=== PATIENT | female | born 1955 | race Caucasian/White ===

== ENCOUNTER 2020-01-22 16:34 | Inpatient (IN) ==
[2020-01-22 17:38] LABS: ABS Basophils 0.1 10^3/ul (0-0.2); ABS Lymphocytes 1.9 10^3/ul (1.0-4.8); ABS Monocytes 0.8 10^3/ul (0-0.8); ABS Neutrophils 10.1 10^3/ul (1.5-7.7); Eosinophil % 0.2 %; Hematocrit 40 % (35-47); Hemoglobin 13.8 g/dL (12.0-16.0); Lymphocyte % 14.6 %; Mean Corpuscular HGB Conc 35 g/dL (31-36); Mean Corpuscular Hemoglobin 31 pg (27-31); Mean Corpuscular Volume 89 fL (80-97); Mean Platelet Volume 7.1 fL (7.4-10.4); Platelet Count 243 10^3/uL (150-450); Red Blood Count 4.48 10^6 /uL (3.70-4.87); Red Cell Distribution Width 13 % (10-15); White Blood Count 12.8 10^3/uL (3.5-10.8)
[2020-01-22 17:44] LABS: INR 1.08 (0.82-1.09)
[2020-01-22 17:55] LABS: Albumin 4.2 g/dL (3.2-5.2); Albumin/Globulin Ratio 1.8 (1-3); BUN/Creatinine Ratio 17.6 (8-20); Calcium 9.5 mg/dL (8.6-10.3); EGFR African American 95.6 (>60); Globulin 2.3 g/dL (2-4); Total Bilirubin 1.1 mg/dL (0.2-1.0); Total Protein 6.5 g/dL (6.4-8.9)
[2020-01-22] MEDS ORDERED: Ondansetron 4 mg VIAL 2 MG/ML 2 ml VIAL IV PRN (18:41)
[2020-01-22] MEDS ORDERED: diPHENhydraMINE IV 50 MG/ML 1 ml VIAL (BENADRYL) IV PRN (18:41)
[2020-01-22] MEDS ORDERED: Morphine 4 MG/ML VIAL (1 ml) IV ONE (18:46)
[2020-01-22] MEDS ORDERED: Ondansetron 4 mg VIAL 2 MG/ML 2 ml VIAL IV ONE (18:46)
[2020-01-22] MEDS: Morphine 10 MG/ML VIAL (1 ml) IV PRN (21:41)
[2020-01-22] MEDS ORDERED: Heparin 5000 UNITS/ML 1 mL VIAL SUBCUT SCH (22:00)
[2020-01-22 22:48] LABS: ABS Basophils 0.1 10^3/ul (0-0.2); ABS Lymphocytes 2.6 10^3/ul (1.0-4.8); ABS Monocytes 1.1 10^3/ul (0-0.8); ABS Neutrophils 7.4 10^3/ul (1.5-7.7); Eosinophil % 0.4 %; Hematocrit 36 % (35-47); Hemoglobin 12.8 g/dL (12.0-16.0); Lymphocyte % 22.8 %; Mean Corpuscular HGB Conc 36 g/dL (31-36); Mean Corpuscular Hemoglobin 32 pg (27-31); Mean Corpuscular Volume 89 fL (80-97); Mean Platelet Volume 7.2 fL (7.4-10.4); Platelet Count 215 10^3/uL (150-450); Red Blood Count 4.04 10^6 /uL (3.70-4.87); Red Cell Distribution Width 13 % (10-15); White Blood Count 11.2 10^3/uL (3.5-10.8)
[2020-01-22 22:53] LABS: INR 1.12 (0.82-1.09)
[2020-01-22 23:03] LABS: BUN/Creatinine Ratio 17.9 (8-20); Calcium 9.1 mg/dL (8.6-10.3); EGFR Non-African American 74.4 (>60); Potassium 3.9 mmol/L (3.5-5.0)
[2020-01-22] MEDS: Lactated Ringers 1000 ml BAG 1,000 ML IV SCH (23:19)
[2020-01-22] MEDS: oxyCODONE/Acetamin 5/325 mg TAB PO PRN (23:26)
[2020-01-23] MEDS: Morphine 10 MG/ML VIAL (1 ml) IV PRN ×2 (02:58→07:13)
[2020-01-23] MEDS ORDERED: Propofol 10 MG/ML 20 ML BTL ONE (07:52)
[2020-01-23] MEDS ORDERED: Dexmedetomidine 200 mcg/2 ml 2 ml VIAL (200 mcg) ONE (07:52)
[2020-01-23] MEDS ORDERED: Lidocaine 2% PF 5 ML VIAL ONE (07:53)
[2020-01-23] MEDS ORDERED: Morphine PF AMP (0.5MG/ML) 5 MG/10 ML AMP ONE (08:01)
[2020-01-23] MEDS ORDERED: ceFAZolin 2 GM PREMIX 2 GM/50 ML BAG ONE (08:24)
[2020-01-23] MEDS ORDERED: ceFAZolin VIAL 2 GM in NS 0.9% 100 ml BAG 100 ML IVPB ONE (08:30)
[2020-01-23] MEDS ORDERED: Propofol 10 mg/ml 100 ML BTL 100 ML ONE (09:39)
[2020-01-23] MEDS ORDERED: Ondansetron 4 mg VIAL 2 MG/ML 2 ml VIAL IV PRN (10:37)
[2020-01-23] MEDS ORDERED: Naloxone 0.4 mg VIAL 0.4 mg/ml 1 ml VIAL IV PRN ×2 (10:37)
[2020-01-23] MEDS ORDERED: Ondansetron 4 mg VIAL 2 MG/ML 2 ml VIAL ONE (11:42)
[2020-01-23] MEDS: ceFAZolin 500 MG VIAL 500 MG in NS 0.9% 50 ML 50 ML IVPB SCH (17:04)
[2020-01-24] MEDS: oxyCODONE/Acetamin 5/325 mg TAB PO PRN ×5 (01:07→22:36)
[2020-01-24] MEDS: ceFAZolin 500 MG VIAL 500 MG in NS 0.9% 50 ML 50 ML IVPB SCH ×2 (01:07→09:21)
[2020-01-24] MEDS: diPHENhydraMINE 25 mg TAB PO PRN ×2 (01:36→09:25)
[2020-01-24] MEDS: Lactated Ringers 1000 ml BAG 1,000 ML IV SCH (02:36)
[2020-01-24] MEDS ORDERED: oxyCODONE/Acetamin 5/325 mg TAB PO PRN (09:23)
[2020-01-24] MEDS ORDERED: Lactulose 30 ml UDC PO PRN (11:46)
[2020-01-24] MEDS ORDERED: Magnesium Hydroxide LIQ 30 ML UDC PO PRN (11:47)
[2020-01-25] MEDS: oxyCODONE/Acetamin 5/325 mg TAB PO PRN ×3 (04:29→23:41)
[2020-01-26] MEDS: oxyCODONE/Acetamin 5/325 mg TAB PO PRN ×3 (07:58→21:06)
[2020-01-26] MEDS: Analgesic BALM 114 GM TOPICAL PRN (21:04)
[2020-01-27] MEDS: oxyCODONE/Acetamin 5/325 mg TAB PO PRN ×3 (02:56→18:53)
[2020-01-27] MEDS: Analgesic BALM 114 GM TOPICAL PRN ×2 (05:52→17:32)
[2020-01-28] MEDS: oxyCODONE/Acetamin 5/325 mg TAB PO PRN ×3 (01:31→13:27)
[2020-01-28 08:53] LABS: ABS Basophils 0.1 10^3/ul (0-0.2); ABS Eosinophils 0.1 10^3/ul (0-0.6); ABS Lymphocytes 1.7 10^3/ul (1.0-4.8); ABS Monocytes 0.8 10^3/ul (0-0.8); ABS Neutrophils 5.3 10^3/ul (1.5-7.7); Eosinophil % 1.4 %; Hematocrit 34 % (35-47); Lymphocyte % 21.3 %; Mean Corpuscular HGB Conc 35 g/dL (31-36); Mean Corpuscular Hemoglobin 32 pg (27-31); Mean Corpuscular Volume 89 fL (80-97); Mean Platelet Volume 6.6 fL (7.4-10.4); Platelet Count 319 10^3/uL (150-450); Red Blood Count 3.81 10^6 /uL (3.70-4.87); Red Cell Distribution Width 12 % (10-15); White Blood Count 7.9 10^3/uL (3.5-10.8)
[2020-01-28 09:15] LABS: BUN/Creatinine Ratio 20.6 (8-20); Calcium 9.7 mg/dL (8.6-10.3); EGFR African American 105.4 (>60); EGFR Non-African American 87.1 (>60); Potassium 3.6 mmol/L (3.5-5.0)
[2020-01-28 12:07] VITALS: BP 138/61
[2020-01-28] MEDS ORDERED: Enoxaparin 40 MG/0.4 ML SYR SUBCUT SCH (20:00)
== END 2020-01-28 15:55 | disposition home health service (06) | DRG 313 ==
LOC: ED 16:34 → SSU 18:41
PROVIDERS: ADMIT Orthopaedic Surgery Hand Surgery; ATTEND Orthopaedic Surgery Hand Surgery